=== PATIENT | male | born 1975 | race Caucasian/White ===

== ENCOUNTER 2023-03-24 17:47 | Inpatient (IN) | payer OTHER ==
[2023-03-24 17:55] VITALS: RESP 18; BMI 30.9
[2023-03-24] MEDS ORDERED: KETOROLAC TROMETHAMINE 15 MG/ML VIAL IVPUSH ONE (18:01)
[2023-03-24] MEDS ORDERED: KETOROLAC TROMETHAMINE 15 MG/ML VIAL ONE (18:07)
[2023-03-24 18:34] LABS: BASO % 0.5 % (0-2.0); EOS % 0.2 % (0-4.5); HEMATOCRIT 42.7 % (35.4-49); LYMPH % 7.9 % (8-40); MCH 29.9 pg (25.7-33.7); MCHC 35.2 g/dl (32.0-35.9); MEAN CELL VOLUME 84.9 fl (80-96); MEAN PLT VOLUME 9.6 fl (7.5-11.1); MONO % 3.9 % (3.8-10.2); NEUT % 87.5 % (42.8-82.8); PLATELET COUNT 204 10^3/uL (134-434); RBC 5.03 M/mm3 (4.00-5.60); RDW 13.4 % (11.9-15.9); WHITE BLOOD COUNT 11.7 K/mm3 (4.0-10.0)
[2023-03-24 18:45] LABS: EPI CELLS 5 /uL (0-25.1); HYALINE CASTS 1 /uL (0-3.1); PH,URINE 5.5 (5.0-8.0); URINE APPEARANCE CLEAR; URINE BACTERIA 2 /uL (0-1359); URINE BILIRUBIN NEGATIVE (NEGATIVE); URINE COLOR YELLOW; URINE GLUCOSE (UA) NEGATIVE (NEGATIVE); URINE KETONE 1+ (NEGATIVE); URINE LEUK ESTERASE NEGATIVE (NEGATIVE); URINE NITRITE NEGATIVE (NEGATIVE); URINE PROTEIN 1+ (NEGATIVE); URINE RBC 280 /uL (0-23.9); URINE UROBILINOGEN 0.2 mg/dL (0.2-1.0); URINE WBC 14 /uL (0-25.8)
[2023-03-24 18:49] LABS: POTASSIUM 4.3 mmol/L (3.5-5.1)
[2023-03-24] MEDS ORDERED: SODIUM CHLORIDE 0.9% 500 ML INFUS.BAG IV ONE (18:50)
[2023-03-24 18:52] LABS: ALBUMIN 4.2 g/dl (3.4-5.0); BLOOD UREA NITROGEN 23.4 mg/dL (7-18)
[2023-03-24 18:55] LABS: CREATININE 1.2 mg/dL (0.55-1.3)
[2023-03-24 18:57] LABS: BILIRUBIN,TOTAL 0.5 mg/dL (0.2-1)
[2023-03-24] MEDS ORDERED: TAMSULOSIN HCL 0.4 MG CAP PO ONE (21:26)
[2023-03-24] MEDS ORDERED: ONDANSETRON 4 MG/2 ML VIAL IVPUSH ONE (21:27)
[2023-03-24] MEDS ORDERED: TAMSULOSIN HCL 0.4 MG CAP ONE (21:27)
[2023-03-24] MEDS ORDERED: morphine CARPU-JECT 2 MG/1 ML DISP.SYRIN IVPUSH ONE (21:27)
[2023-03-24] MEDS ORDERED: ONDANSETRON 4 MG/2 ML VIAL ONE (21:38)
[2023-03-25] MEDS ORDERED: morphine SULFATE 4 MG/ML VIAL IVPUSH PRN (00:27)
[2023-03-25] MEDS ORDERED: SODIUM CHLORIDE 1,000 ML IV SCH (00:45)
[2023-03-25] MEDS ORDERED: CEFTRIAXONE 1 GM/50 ML BAG ONE (01:06)
[2023-03-25] MEDS: CEFTRIAXONE 1 GM in DEXTROSE 5%-WATER - 50 ML IVPB SCH ×2 (01:06→09:03)
[2023-03-25 07:55] LABS: BASO % 0.4 % (0-2.0); EOS % 1.1 % (0-4.5); HEMATOCRIT 39.8 % (35.4-49); HEMOGLOBIN 13.7 GM/dL (11.7-16.9); LYMPH % 20.1 % (8-40); MCH 29.7 pg (25.7-33.7); MCHC 34.6 g/dl (32.0-35.9); MEAN PLT VOLUME 9.3 fl (7.5-11.1); NEUT % 69.4 % (42.8-82.8); PLATELET COUNT 176 10^3/uL (134-434); RBC 4.62 M/mm3 (4.00-5.60); RDW 13.3 % (11.9-15.9); WHITE BLOOD COUNT 7.2 K/mm3 (4.0-10.0)
[2023-03-25 08:01] LABS: INR 1.11 (0.83-1.09); PROTHROMBIN TIME (PATIENT) 12.9 SEC (9.7-13.0)
[2023-03-25 08:05] LABS: ACTIVATED PTT 32.4 SECONDS (25.2-36.5)
[2023-03-25 08:14] LABS: POTASSIUM 3.8 mmol/L (3.5-5.1)
[2023-03-25 08:23] LABS: ALBUMIN 3.5 g/dl (3.4-5.0); BLOOD UREA NITROGEN 17.4 mg/dL (7-18); PHOSPHOROUS 3.2 mg/dL (2.5-4.9)
[2023-03-25 08:24] LABS: TOT PROT 6.6 g/dl (6.4-8.2)
[2023-03-25 08:25] LABS: BILIRUBIN,TOTAL 0.6 mg/dL (0.2-1)
[2023-03-25 08:26] LABS: CREATININE 0.9 mg/dL (0.55-1.3); MAGNESIUM 2.4 mg/dL (1.8-2.4)
[2023-03-25] MEDS ORDERED: TAMSULOSIN HCL 0.4 MG CAP PO SCH (08:30)
[2023-03-25] MEDS ORDERED: MIDAZOLAM HCL 2 MG/2 ML SINGLE DOSE VIAL ONE (11:43)
[2023-03-25] MEDS ORDERED: LIDOCAINE HCL/PF 2% SDV 5ML VIAL ONE (11:44)
[2023-03-25] MEDS ORDERED: ONDANSETRON 4 MG/2 ML VIAL ONE (12:03)
[2023-03-25] MEDS ORDERED: DEXAMETHASONE SOD PHOSPHATE 4 MG/1 ML VIAL ONE (12:03)
[2023-03-25] MEDS ORDERED: ACETAMINOPHEN 325 MG TABLET (FP) PO PRN (12:09)
[2023-03-25] MEDS ORDERED: ONDANSETRON 4 MG/2 ML VIAL IVPUSH PRN (12:46)
[2023-03-25] MEDS ORDERED: LACTATED RINGERS SOLUTION 1,000 ML IV SCH (13:00)
[2023-03-25] MEDS: SODIUM CHLORIDE 1,000 ML IV SCH ×2 (13:05→13:40)
[2023-03-26] MEDS: SODIUM CHLORIDE 1,000 ML IV SCH (01:14)
[2023-03-26] MEDS ORDERED: CEFTRIAXONE 1 GM in DEXTROSE 5%-WATER - 50 ML IVPB SCH (10:00)
[2023-03-26 12:21] VITALS: BP 114/75; PULSE 85; TEMP 98.6
== END 2023-03-26 15:43 | disposition home or self-care (01) | DRG 446 ==
LOC: JER 17:47 → JERBED 21:47 → J6S 03-25 01:18
PROVIDERS: ADMIT Internal Medicine; ATTEND Internal Medicine
PROC: 0T778DZ Dilation of Left Ureter with Intraluminal Device, Via Natural or Artificial Opening Endoscopic (ICD-10-PCS; 2023-03-25)
PROC: BT1FZZZ Fluoroscopy of Left Kidney, Ureter and Bladder (ICD-10-PCS; 2023-03-25)
PROC: 0TC78ZZ Extirpation of Matter from Left Ureter, Via Natural or Artificial Opening Endoscopic (ICD-10-PCS; principal; 2023-03-25 11:30)
DX: N13.6 Pyonephrosis (principal); E66.9 Obesity, unspecified; Z68.30 Body mass index [BMI] 30.0-30.9, adult; R31.9 Hematuria, unspecified; R30.0 Dysuria
CPT/HCPCS: 0241U-QW; 36415; 74176-TC; 76000-TC-FY; 80053; 81003; 82360; 83735; 84100; 85025; 85610; 85730; 86850; 86900; 86901; 87040; 87086; 88300-TC; 94760; 99285-25; C2617

== ENCOUNTER 2023-05-28 05:38 | Day surgery (SDC) | payer OTHER ==
[2023-05-23 10:19] VITALS: BMI 30.9
[2023-05-28] MEDS ORDERED: ONDANSETRON 4 MG/2 ML VIAL ONE (13:15)
[2023-05-28] MEDS ORDERED: MIDAZOLAM HCL 2 MG/2 ML SINGLE DOSE VIAL ONE (13:15)
[2023-05-28 14:52] VITALS: TEMP 97
[2023-05-28 14:57] VITALS: BP 120/80; PULSE 65; RESP 16
== END 2023-05-28 14:25 | disposition home or self-care (01) ==
LOC: JASU-SURG 05:38
PROVIDERS: ATTEND Urology
PROC: 0TF3XZZ Fragmentation in Right Kidney Pelvis, External Approach (ICD-10-PCS; principal; 2023-05-28 14:30)
DX: N20.0 Calculus of kidney (principal)